=== PATIENT | male | born 1995 | race Caucasian/White ===

== ENCOUNTER 2017-11-07 11:28 | Emergency (ER) | payer BC ==
--- NOTE | 2017-11-07 12:30 | EDPHY ---
General Time Seen by Provider: 11/07/17 12:17 Narrative: CHIEF COMPLAINT: Head injury 2 days ago HISTORY OF PRESENT ILLNESS: Patient reports with complaints of head injury on night at midnight. He was at work when he accidentally struck his head on a wooden shelf. This was at the anterior part of the hairline over the forehead. No loss of consciousness. He does have a mild headache. He complains of feeling "foggy and fatigued." No visual disturbance. No vomiting. No chest, back or abdominal pain. His neck has felt sort him but not tight. He does have some mild tinnitus at times. No drainage from the nose the ears. No repeat injury. No medications taken. No previous evaluation. No other associated complaints or modifying factors. REVIEW OF SYSTEMS: Ten systems reviewed and are negative unless otherwise noted in the HPI PCP: None SPECIALISTS: None PAST MEDICAL HISTORY: None no previous concussion or bleeding disorders. PAST SURGICAL HISTORY: None SOCIAL HISTORY: No tobacco or drug use. Occasional alcohol use. Lives and works here independently. Works at a [employer] FAMILY HISTORY: Noncontributory EXAMINATION General Appearance: Alert, no distress Head: normocephalic, atraumatic with exception of superficial abrasion to the forehead centrally at the hairline. There is no depression. No hematoma. No scalp laceration. Eyes: Pupils equal and round, no conjunctival pallor or injection. EOM symmetric. No nystagmus. ENT, Mouth: Mucous membranes moist Neck: Normal inspection, supple, non-tender. No meningismus Respiratory: No retractions or distress Cardiovascular: Regular rate. Good signs of perfusion Back: non-tender, no bony abnormalities Neurological: GCS 15. A&O, nonfocal, normal steady gait. Normal heel walk. Will toe walk. No pronator drift. Normal [id number]. Strength is 5/5 in all 4 limbs. Skin: Warm and dry, no rash. Superficial abrasion to the forehead as above. No laceration or puncture. Extremities: Nontender, no pedal edema. Symmetric range of motion. Psychiatric: Mood and affect normal DIFFERENTIAL DIAGNOSES: Including but not limited to concussion, intracranial hemorrhage, basilar skull fracture, post concussive syndrome, tension headache MDM: 12:30 p.m. Closed head injury 36 hr ago. There is no signs of basilar skull fracture. No depression, laceration or hematoma. His neuro exam is well within normal limits with no focal findings. He has not vomited. He has no diplopia. He does have mild tinnitus but he has no trauma to the TMs and no blood in the EACs. I do feel he is stable for discharge home with reassurance and instructions to take [id number]-[id number] medications as needed for headache. I also discussed the nature of his head injury and the symptoms may linger for several weeks. I will provide him with the on-call concussion specialist as needed. We discussed ED precautions. We discussed avoiding repeat head injuries. He is comfortable this plan and discharged home stable condition. SUPERVISION: This patient was independently evaluated without direct involvement of or examination by the attending physician. - History Smoking Status: Never smoked - Objective Vital Signs: Initial Vital Signs Temperature (C) 98.8 F 11/07/17 11:31 Heart Rate 83 11/07/17 11:31 Respiratory Rate 16 11/07/17 11:31 Blood Pressure 128/83 H 11/07/17 11:31 O2 Sat (%) 97 11/07/17 11:31 O2 Delivery Mode Room Air Allergies/Adverse Reactions: No Known Allergies Allergy (Unverified 11/07/17 11:31) Home Medications: Medication Instructions Recorded NK [No Known Home Meds] 11/07/17 Departure - Departure Disposition: Home, Routine, Self-Care Clinical Impression: Closed head injury without loss of consciousness Qualifiers: Encounter type: initial encounter Qualified Code(s): S09.90XA - Unspecified injury of head, initial encounter Condition: Good Instructions: Concussion (ED), Head Injury (ED) Additional Instructions: 1. Head injury precautions as discussed 2. Zjnk-ilj-nvxfopa ibuprofen 600 mg every 8 hr as needed 3. Gmvp-huf-gyfhkru Tylenol 500 to a 1000 mg every 6-8 hours as needed 4. Contact the on-call concussion specialist Dr. Peoples as provided for outpatient care if symptoms persist 5. ED precautions as discussed Referrals: Milagros Peoples MD [Medical Doctor] - As per Instructions
[2017-11-07 12:40] VITALS: BP 133/67
== END 2017-11-07 12:40 | disposition home or self-care (01) ==
DX: S09.90XA Unspecified injury of head, initial encounter (principal); W22.03XA Walked into furniture, initial encounter; Y99.0 Civilian activity done for income or pay; Y93.89 Activity, other specified